=== PATIENT | female | born 1990 | race Hispanic/Latino ===

== ENCOUNTER 2017-08-24 05:27 | Inpatient (IN) | payer OTHER ==
[2017-08-24 05:40] VITALS: BMI 26.4
[2017-08-24] MEDS: Lactated Ringer's 1,000 ML IV SCH ×2 (06:00→15:49)
[2017-08-24 06:26] VITALS: O2SAT 100
[2017-08-24 06:30] LABS: BASO # 0.1 K/uL (0.0-0.2); BASO % 1.3 % (0.0-2.0); EOS # 0.1 K/uL (0.0-0.7); EOS % 0.9 % (0.0-4.0); HEMATOCRIT 38.5 % (34.0-47.0); LYMPH # 2.9 K/uL (1.0-4.3); LYMPH % 26.7 % (20.0-40.0); MEAN CELL VOLUME 91.6 fl (81.0-99.0); MEAN CORPUSCULAR HEMOGLOBIN 30.6 pg (27.0-31.0); MEAN CORPUSCULAR HGB CONC 33.4 g/dL (33.0-37.0); MONO # 0.7 K/uL (0.0-0.8); MONO % 6.6 % (0.0-10.0); NEUT % 64.5 % (50.0-75.0); NRBC % 0.1 % (0.0-0.0); RED CELL DISTRIBUTION WIDTH 13.8 % (11.5-14.5); WHITE BLOOD COUNT 10.9 K/uL (4.8-10.8)
[2017-08-24] MEDS ORDERED: cefOXitin Sodium 1 GM in Sodium Chloride 0.9% 100 ML IVPB STA (07:29)
[2017-08-24] MEDS ORDERED: cefOXitin IV 1 gm in Dextrose 1 GM/50 ML BAG IVPB STA (07:30)
[2017-08-24] MEDS ORDERED: Morphine 1 mg/ml preservative-free Inj(Duramorph) ONE (08:04)
[2017-08-24] MEDS ORDERED: Dexamethasone 4 mg/1 ml ONE (08:20)
[2017-08-24] MEDS ORDERED: DiphenhydrAMINE 50 mg/ml Inj IVP PRN (08:26)
[2017-08-24] MEDS ORDERED: Morphine 1 mg/ml preservative-free Inj(Duramorph) IT ONE (08:26)
[2017-08-24] MEDS ORDERED: Naloxone 0.4 mg/ml Inj (Adult) IVP PRN (08:26)
[2017-08-24] MEDS ORDERED: Oxytocin 30 UNITS in Sodium Chloride 0.9% 500 ML IV ONE (08:30)
--- NOTE | 2017-08-24 09:29 | OBADHP ---
Datetime: 08/24/2017 07:35 IP Adm Impression Other: maternal request for C/S Admit Comment, IP Provider: maternal request for C/S Discussed vaginal vs c/S benefits and ris ks Risks of surgery and anesthesia discussed Still insists on C/S Extremities - PN: Normal Abdomen - PN: Abnormal Back - PN: Normal Breast - PN: Normal Lungs - PN: Normal Heart - PN: Normal Thyroid - PN: Normal Neurologic - PN: Normal HEENT - PN: Normal General - PN: Normal FHR - Baseline A Provider: 140-150 Membranes, Provider: Intact Comments, ACOG Physical Exam: Abd soft ND, gravid fundus at term, NT Ext no calf tenderness Gestation - Est Wks by US: 39.0 IP Hx Assessment: The History has been Reviewed and is Current Vital Signs Provider: Reviewed IP Chief Complaint: Uterine contractions; Maternal discomfort NICHD Variability Prov Fetus A: Moderate 6-25bpm NICHD Accel Fetus A IP Provider: 10X10 NICHD Decel Fetus A IP Provider: None Dilatation, Provider: 1cm Effacement, Provider: 50 Genitourinary Exam: Normal EGA AdmitDate IP: 39.0 IP Adm Impression: Term, intrauterine IP Admit Plan: Admit to unit; Initiate Section protocol
--- NOTE | 2017-08-24 09:32 | OBDS ---
DELIVERY PERSONNEL Delivery Doctor: Nuha Green MD Trim Machine Adjuster: Rosette Gonzalez RN Anesthesiologist: Dr Moses MATERNAL INFORMATION Delivery Anesthesia: Spinal Medications in Delivery: mefoxin Estimated Blood Loss (ml): 850cc+ Placenta Cultured: No Maternal Complications: None Provider Comments: see surgeon dictated note LABOR SUMMARY EDC: 08/31/2017 00:00 No. Babies in Womb: 1 LABOR INFORMATION Reason for Induction: Not Applicable Steroids Given: None Reason Steroids Not Administered: Not Applicable STAGES OF LABOR Stage 3 hrs: 0 Stage 3 min: 1 VAGINAL DELIVERY Episiotomy: None Laceration Extension: N/A Laceration Type: None Laceration Repair: Not Applicable Sponge Count Correct: N/A Sharps Count Correct: N/A CSECTION DELIVERY Primary Indication: maternal request Secondary Indication: maternal request CSection Incidence: Primary Elective: Elective CSection Incision: Lower Uterine Transverse Uterine Closure: Double-layer closure BABY A INFORMATION Infant Delivery Date/Time: 08/24/2017 08:36 Method of Delivery: Born in Route : No : N/A Forceps: N/A Vacuum Extraction: N/A Shoulder Dystocia : No SHOULDER DYSTOCIA BABY A Delivery Date/Time: 08/24/2017 08:36 PRESENTATION/POSITION BABY A Presentation: Cephalic Cephalic Presentation: Vertex Breech Presentation: N/A PLACENTA INFORMATION BABY A Placenta Delivery Time : 08/24/2017 08:37 Placenta Method of Delivery: Manual Removal Placenta Status: Delivered SCORES BABY A Heart Rate 1 min: >100 bpm Resp Effort 1 min: Good Cry Reflex Irritability 1 min: Cough or Sneeze or Pulls Away Muscle Tone 1 min: Active Motion Color 1 min: Body [place], Extremities Blue Resuscitation Effort 1 min: N/A SCORE 1 MIN: 9 Heart Rate 5 min: >100 bpm Resp Effort 5 min: Good Cry Reflex Irritability 5 min: Cough or Sneeze or Pulls Away Muscle Tone 5 min: Active Motion Color 5 min: Body [place], Extremities Blue Resuscitation Effort 5 min: N/A SCORE 5 MIN: 9 INFORMATION BABY A Gestational Age at Delivery: 39.0 Gestational Status: Term Outcome : Liveborn Infant Condition : Stable Infant Sex: Female CORD INFORMATION BABY A No. Cord Vessels: 3 Nuchal Cord : Around Neck x1, Loose Cord Blood Taken: Yes Infant Suction: Mouth
[2017-08-24] MEDS: cefOXitin IV 1 gm in Dextrose 1 GM/50 ML BAG IVPB SCH ×2 (15:44→23:45)
--- NOTE | 2017-08-24 19:12 | OP ---
PROCEDURE DATE: 08/24/2017 PREOPERATIVE DIAGNOSES: 1. at term. 2. Abdominal pain. 3. Maternal request. POSTOPERATIVE DIAGNOSES: 1. at term. 2. Abdominal pain. 3. Maternal request. 4. Nuchal cord x1. PROCEDURE PERFORMED: Primary low-transverse segment section. SURGEON: Abdiel Green MD. LIME TRIMMER: Tucker Ruano MD. who was there for the entire duration of the case. College Basketball Coach needed in order to position the patient and aid in delivering of the baby, opening and closure of the abdomen. TYPE OF ANESTHESIA: Spinal. ANESTHESIA ADMINISTERED BY: Andre Moses MD. ESTIMATED BLOOD LOSS: 850 mL. DRAINS USED: None. REPLACEMENTS USED: None. FINDINGS: 1. Delivered living baby girl, baby appears term, baby cries spontaneously, pediatrist in attendance. score of 9 and 9. 2. Nuchal cord x1, loose, undone prior to full delivery. 3. Amniotic fluid clear. 4. Placenta complete and intact. 5. Both tubes and ovaries appear grossly within normal limits to inspection bilaterally. DESCRIPTION OF PROCEDURE: The patient was taken to the operating room and placed on the operating table in a supine position following induction of spinal anesthesia. The patient was replaced in a supine position. After this, Venodyne boots were applied to both legs and a Block catheter was introduced into the bladder and clear fluid was then evacuated from the bladder. The abdomen was then draped and prepped in a usual sterile manner. Anesthesia tested and found to be well secured and a Pfannenstiel incision was then made using sharp dissection 2 fingerbreadths above the symphysis pubis. The incision was then extended down to the subcutaneous tissue, also using sharp dissection. Hemostasis was obtained by means of electrocoagulation. At this time, the fascia was then identified, was then entered at the midline. Incision of the fascia was then extended laterally on each direction. Following this, the rectus muscle was then identified, was then slit in the midline exposing the peritoneum. Peritoneal layer was then picked up using two Cristal clamps, retracted superiorly and then entered using sharp dissection. Incision in the peritoneum was then extended superiorly and inferiorly under direct visualization. At this time, we then proceeded to identify the bladder, which was then retracted inferiorly using the [place] retractor. The low transverse segment of the uterus was then identified and the visceroperitoneum covering this area was then entered using sharp dissection. Using blunt dissection, a bladder flap was then created and retracted inferiorly using the same [place] retractor. Following this, we then proceeded to identify the low transverse segment of the uterus and the incision was then made in this area. Upon entering the uterine cavity, clear fluid noted to be present. Incision on the uterus was then extended laterally on each direction using bandage scissors. Using amnioscopy procedure, a living baby girl was then delivered. There was a loop of cord around the neck, undone prior to full delivery. The baby cried spontaneously, was immediately aspirated using a bulb suction. The umbilicus was then doubly clamped, cut, and the baby handed to the pediatric personnel who was standing by. Samples of cord blood were then obtained and the placenta was then delivered complete and intact. At this stage, the uterus was then exteriorized to provide better visualization. The uterine incision was then secured using multiple T clamps and the uterine cavity was then cleaned using moist lap pads. The uterus was massaged and contracted well. The uterine incision was then secured using 0 Vicryl suture in a continuous interlocking manner. A second layer was also applied using 0 Vicryl suture in a continuous manner. Hemostasis was checked and found to be well secured. At this time, the bladder flap was then approximated using a 2-0 Vicryl suture in a continuous manner. Again, hemostasis was checked and found to be free of bleeding. At this time, we then proceeded to evacuate free amniotic fluid and blood from the pelvic cavity. The pelvic cavity was then irrigated using saline solution and the irrigant was then removed. The uterus was then allowed to retract back into its original position. All operative areas checked, hemostatically secured. Both tubes and ovaries have been inspected and found to be grossly within normal limits to inspection bilaterally. At this time, all operative areas checked, hemostatically secured and the peritoneum was then closed using 0 Vicryl suture in a continuous manner. Rectus muscle was also approximated at the midline using 0 Vicryl suture in a continuous manner. At this time, the fascia was then identified, was then approximated using 1 Vicryl suture in a continued manner. Fascia was then checked and found to be free of defects. Subcutaneous tissue was then irrigated using saline solution and hemostasis obtained by means of electrocoagulation. 2-0 plain sutures were applied to the subcutaneous tissue in an interrupted manner in order to obliterate that space. The skin was then approximated using a 3-0 Prolene in a subcuticular fashion. Steri-Strips were then applied. The patient tolerated the procedure well. There were no complications. Sponge, instrument, and needle counts were correct x3. At this time, clear fluid noted to be present in the Block bag. The patient was then transferred to the recovery room in satisfactory condition. Abdiel Green MD
[2017-08-24] MEDS ORDERED: Oxycodone/Acetaminophen 5/325 mg Tab PO PRN ×2 (19:42→19:44)
[2017-08-25 07:54] LABS: HEMATOCRIT 26.1 % (34.0-47.0); MEAN CELL VOLUME 92.4 fl (81.0-99.0); MEAN CORPUSCULAR HEMOGLOBIN 31.1 pg (27.0-31.0); MEAN CORPUSCULAR HGB CONC 33.7 g/dL (33.0-37.0); RED CELL DISTRIBUTION WIDTH 13.9 % (11.5-14.5); WHITE BLOOD COUNT 12.8 K/uL (4.8-10.8)
--- NOTE | 2017-08-25 08:03 | OBPPN ---
Datetime: 08/25/2017 07:58 PP Pain Prov: Within normal limits PP Pain Prov comment: No SOB, chest pains or leg pains PP Nausea Prov: Denies PP Flatus Prov: Yes PP Nausea Prov comment: No C/F PP Breasts Prov: Normal PP Lungs Prov: Normal PP Abdomen/Uterus Prov: Abnormal PP Lochia Prov: Normal PP Vulva/Perineum Prov: Normal PP CVA Tenderness Prov: Normal PP Extremities Prov: Normal PP C/S Incision Prov: Normal PP Progress Prov: Normal PP Comments Phys Exam Prov: Breast not engorged, Abd soft ND, fundus firm below the umb. Dressing i ntact no sign of active bleeding Ext no edema or calf tenderness. PP Impression Prov: Normal progression PP Plan Prov: Continue present management PP Progress Note Prov: Pending CBC this am OOB and ambulation Increase diet as tolerated. IP PP Procedures: None Vital Signs Provider PP: Reviewed
[2017-08-25] MEDS: cefOXitin IV 1 gm in Dextrose 1 GM/50 ML BAG IVPB SCH (09:15)
--- NOTE | 2017-08-26 07:37 | OBPPN ---
Datetime: 08/26/2017 07:32 PP Pain Prov: Within normal limits PP Pain Prov comment: No SOB, chest or leg pains PP Nausea Prov: Denies PP Flatus Prov: Yes PP BM Prov: Yes PP Nausea Prov comment: Denies C/F PP Breasts Prov: Normal PP Lungs Prov: Normal PP Abdomen/Uterus Prov: Abnormal PP Lochia Prov: Normal PP Vulva/Perineum Prov: Normal PP CVA Tenderness Prov: Normal PP Extremities Prov: Normal PP C/S Incision Prov: Normal PP Progress Prov: Normal PP Comments Phys Exam Prov: Breast not engorged, breast feeding Abd soft nd, fundus firm bel umb. I ncision clean and dry no active bleeding no suppt or discharge. Ext no calf tenderness PP Impression Prov: Normal progression PP Plan Prov: Continue present management PP Progress Note Prov: Continue po care and OOB and ambulation IP PP Procedures: None Vital Signs Provider PP: Reviewed
--- NOTE | 2017-08-26 18:34 | OBPPN ---
Datetime: 08/26/2017 18:30 PP Progress Note Prov: pt requesting to be d/C home had bm no complaints and stable vs D/C home with instructions and folllow up office 1 wk
--- NOTE | 2017-08-26 18:36 | OBDCSUM ---
Datetime: 08/26/2017 18:32 Discharged to, Provider: Home Follow up at, Provider: Dr Peter Jordan Instr Activity: Bedrest; May be up to bathroom; May be up for meals; May Shower Disch Instr Diet: Regular Discharge Instructions, Provider: Routine instructions given Discharge Diagnosis, Provider: Term Delivered Discharge Time: 08/26/2017 18:32 Follow up in weeks, Provider: 1 wk Disch Referrals: None Contraception discussed, Prov: Yes Disch Activity Restrictions: No exercising; No lifting; No driving; Minimize walking; Minimize stair -climbing; No sexual activity; Nothing in vagina - [place], tampons, douche Discharge Comment, Provider: Rx for Percocet given and continue PNC vit and iron Contraception after Delivery: Undecided Datetime: 08/26/2017 14:38 Discharged to, Provider: Home Follow up at, Provider: Peter KEATING Disch Instr Diet: Regular Follow up in weeks, Provider: 1 week Disch Activity Restrictions: No exercising
[2017-08-27 01:34] VITALS: BP 107/72; PULSE 75; RESP 20; TEMP 98.3
== END 2017-08-26 19:15 | disposition home or self-care (01) | DRG 766 ==
LOC: H.EROB2 05:27 → H.L&D 05:56 → H.OB/GYN 11:50
PROVIDERS: ADMIT Specialist; ATTEND Specialist
PROC: 10D00Z1 Extraction of Products of Conception, Low, Open Approach (ICD-10-PCS; principal; 2017-08-24)
PROC: 4A1HXCZ Monitoring of Products of Conception, Cardiac Rate, External Approach (ICD-10-PCS; 2017-08-24)
DX: O69.81X0 Labor and delivery complicated by cord around neck, without compression, not applicable or unspecified (principal); Z37.0 Single live birth; Z3A.39 39 weeks gestation of pregnancy